=== PATIENT | female | born 1935 | race Caucasian/White ===

== ENCOUNTER 2018-03-29 01:26 | Observation (INO) | payer MEDICARE, OTHER ==
[2018-03-29] MEDS ORDERED: Nitroglycerin 0.4 MG TAB (25 Tab Bottle) ONE (01:50)
[2018-03-29 02:43] LABS: Troponin I Less than 0.010 ng/mL (< 0.028)
[2018-03-29] MEDS ORDERED: Acetaminophen 325 MG TAB PO PRN (03:28)
[2018-03-29] MEDS ORDERED: Ondansetron ODT 4 MG TAB SL PRN (03:28)
[2018-03-29] MEDS ORDERED: Ondansetron PF 4 MG/2 ML Vial IVP PRN (03:28)
[2018-03-29] MEDS ORDERED: Levothyroxine Sodium 75 MCG TAB PO SCH (06:00)
[2018-03-29 06:17] VITALS: BMI 34.1
[2018-03-29] MEDS ORDERED: Fish Oil 1,000 MG CAP PO SCH (09:00)
[2018-03-29] MEDS ORDERED: Docusate 100 MG CAP PO SCH (09:00)
[2018-03-29] MEDS ORDERED: Heparin 5,000 UNITS/ML VIAL SC SCH (09:00)
[2018-03-29 09:04] LABS: #Basophils 0.1 thou/uL (0.0-0.2); #Eosinphils 0.1 thou/uL (0.0-0.7); #Lymphocytes 2.3 thou/uL (1.20-3.40); #Monocytes 0.8 thou/uL (0.11-0.59); %Basophils 1.2 % (0.0-1.0); %Eosinophils 1.8 % (0.0-10.0); %Lymphocytes 32.2 % (21.0-51.0); %Monocytes 10.4 % (0.0-10.0); %Neutrophils 54.4 % (42.0-75.0); Hemoglobin 12.7 g/dL (12.0-16.0); Mean Corpuscular HGB CONC 33.1 g/dL (32.0-36.0); Mean Corpuscular Hemoglobin 29.7 pg (27.0-31.0); Mean Corpuscular Volume 89.7 fl (81.0-99.0); Mean Platelet Volume 8.1 fL (7.4-10.4); Platelet Count 215 thou/uL (130-400); RBC Distribution Width 12.3 % (11.5-14.5); Red Blood Cell (RBC) Count 4.29 mill/uL (4.20-5.40); White Blood Cell (WBC) Count 7.3 thou/uL (4.8-10.8)
[2018-03-29 09:20] LABS: Anion Gap 11 mmol/L (10-20); BUN (Urea Nitrogen) 21 mg/dL (9.8-20.1); Calc. Creatinine Clearance 66 mL/min (70-130); Calcium 9.9 mg/dL (7.8-10.44); Carbon Dioxide 28 mmol/L (23-31); Chloride 106 mmol/L (98-107); Estimated GFR-MDRD 54; Glucose 82 mg/dL (83-110); Potassium 4.2 mmol/L (3.5-5.1); Sodium 141 mmol/L (136-145)
--- NOTE | 2018-03-29 09:54 | HP ---
PRIMARY CARE PHYSICIAN: Workman CHIEF COMPLAINT: Chest pain. HISTORY OF PRESENT ILLNESS: The patient is a very pleasant 83-year-old female who recently had an ar throscopy of her left knee who comes in today with complaints of chest pain. The patient stated that she was watching TV when she started having significant amount of chest pain radiating to her right jaw and little bit of shortness of breath and diaphoresis. The patient stated initially lasted for a few seconds and then went away and then came back which concerned her. The patient states that she was concerned about a pulmonary embolism, so she went to the ER in [place] where they did CTA of her lungs, no PE was found. The patient then had her cardiac enzymes drawn, which was negative x1 set an d she was transferred here for further evaluation. PAST MEDICAL HISTORY: History of hyperlipidemia, hypertension, pulmonary disease, and asthma. PAST SURGICAL HISTORY: Cholecystectomy, tonsillectomy. She had a cardiac catheterization, but no st ents. SOCIAL HISTORY: She denies any alcohol use, drug use, no smoking history. ALLERGIES: Are as the following: She is allergic to a lot of medications, ADVAIR, AZITHROMYCIN, ARLETH EBREX, CIGARETTE SMOKING, SALGADO, EZETIMIBE, FLUTICASONE, PERFUME, SALMETEROL, SIMVASTATIN. CURRENT MEDICATIONS: Levothyroxine 75 mcg daily, Zetia 100 mg daily, fenofibrate 160 mg b.i.d., aspi rin 81 mg daily, fish oil 20 mg daily, metformin 500 mg twice a day. PHYSICAL EXAMINATION: VITAL SIGNS: Temperature of 97.8, respirations 20-22, pulse of 58, blood pressure 160/71, and sats 9 9% on room air. GENERAL: She is awake, alert, oriented x3, currently sleeping, but easily arousable. CARDIOVASCULAR: S1, S2 present. No murmurs, rubs or gallops. ABDOMEN: Soft, nontender. Bowel sounds are present x2. LUNGS: Clear to auscultation. No rhonchi, wheezes noted. EXTREMITIES: No edema. Pedal pulses are present x2. EKG just shows sinus bradycardia, no ST elevation or T-wave changes noted. The patient did get nitro glycerin sublingual and some normal saline in the ER. LABORATORY RESULTS: Are as the following: Her chemistry currently I do not have them with me, but I did review her CBC which was unremarkable and her BMP also did not indicate any acute abnormalities. As I mentioned initial troponin was negative. Her second troponin here was also negative. I will continue to trend another one. ASSESSMENT AND PLAN: The patient is a very pleasant 83-year-old female who presents to the hospital for chest pain. 1. Chest pain. Troponins x2 are negative. CTA, PE protocol negative for PE. We will continue the patient's aspirin and home medications. If the patient's troponin trends to worsen, may consider licha zaldivar a consult in Cardiology. 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 2. Hypothyroidism. We will continue the patient's home medications. 3. Bradycardia. The patient is currently asymptomatic. We will continue to monitor. She is not on any beta blockers.
[2018-03-29 11:42] VITALS: BP 173/70; TEMP 98.6
[2018-03-29 12:41] LABS: CKMB 1.2 ng/mL (0-6.6); Troponin I Less than 0.010 ng/mL (< 0.028)
[2018-03-29] MEDS ORDERED: Ezetimibe 10 MG TAB PO SCH (21:00)
--- NOTE | 2018-04-01 12:58 | DIS ---
PRIMARY CARE PHYSICIAN: Dr. Antwan Damon DATE OF ADMISSION: 03/29/2018 DATE OF DISCHARGE: 03/29/2018 DISCHARGE DIAGNOSES: 1. Noncardiac chest pain. 2. Hypothyroidism. 3. Asymptomatic bradycardia. 4. Hyperlipidemia. 5. Hypertension. 6. Chronic obstructive pulmonary disease/asthma. CONSULTATIONS: None. PROCEDURES: None. HISTORY AND PHYSICAL: Ms. Odalys Polk is an 83-year-old female with the above history who presented to the emergency department for chest discomfort radiating to her right jaw with shortness of breath and diaphoresis. It lasted for a few seconds, went away and came back so she got concerned and came to the emergency department. At the ER in [place] where she initially presented, CT angiogram of the lungs was negative for pulmonary embolus. Cardiac biomarkers were drawn which were negative x1, and she was transferred here for further evaluation. Workup in our ER was cursory and we were called for admission. HOSPITAL COURSE: The patient was seen and examined by Dr. Dowell. A repeat troponin here was still undetectable. She was placed in observation and continued on home medications. The third set of car diac biomarkers were unremarkable as well. We spoke with Dr. Gomez's office and they recommended outpatient followup. The patient was subsequently discharged with outpatient followup. PHYSICAL EXAMINATION: The patient was seen and examined on the day of discharge. Discharge plan and disposition was discussed with the patient face to face at the bedside. DISCHARGE MEDICATIONS: 1. The patient is to continue fish oil 2000 mg daily. 2. Levothyroxine 75 mcg daily. 3. Zetia 10 mg p.o. at bedtime. 4. Benefiber acid 165 mg p.o. at bedtime. 5. Aspirin 81 mg daily. 6. PreserVision areds 2 soft gel 1 capsule oral daily. 7. Aspirin 325 mg daily. DISCHARGE CONDITION: Stable. DISPOSITION: Discharged home via private vehicle. DISCHARGE FOLLOWUP: 1. Dr. Gomez in 1-[address] Antwan Damon within 10 days. DISCHARGE DIET: Heart healthy diet recommended. DISCHARGE ACTIVITY: Per orthopedic limits.
--- NOTE | 2018-05-24 16:33 | EKG ---
Test Reason : CP Blood Pressure : / mmHG Vent. Rate : 053 BPM Atrial Rate : 053 BPM P-R Int : 182 ms QRS Dur : 094 ms QT Int : 420 ms P-R-T Axes : 032 002 034 degrees QTc Int : 394 ms Sinus bradycardia Otherwise normal ECG Confirmed by JAQUELIN KITCHEN M.D. ([id number]), staff editor FRANCIS STOREY ([id number]) on 05/24/2018 4:32:54 PM Referred By: Confirmed By:JAQUELIN KITCHEN M.D.
== END 2018-03-29 14:02 | disposition home or self-care (01) ==
LOC: ERS 01:26 → IMCU/EMU 02:00
PROVIDERS: ADMIT Internal Medicine; ATTEND Internal Medicine
DX: R07.9 Chest pain, unspecified (principal); E78.5 Hyperlipidemia, unspecified; I10 Essential (primary) hypertension; J45.909 Unspecified asthma, uncomplicated; E03.9 Hypothyroidism, unspecified; Z88.8 Allergy status to other drugs, medicaments and biological substances; Z88.1 Allergy status to other antibiotic agents; Z79.899 Other long term (current) drug therapy; Z79.82 Long term (current) use of aspirin
CPT/HCPCS: 80048; 82553; 84484 ×2; 85025; 93005; 96360; 99285; G0378; 36415